=== PATIENT | female | born 1945 | race Caucasian/White ===

== ENCOUNTER 2024-03-27 07:51 | Inpatient (IN) ==
[2024-03-27 08:39] LABS: Basophils # (auto) 0.04 K/uL (0.00-0.20); Basophils % (auto) 0.4 %; Eosinophils # (auto) 0.13 K/uL (0.00-0.50); Eosinophils % (auto) 1.4 %; Hematocrit (blood only) 34.9 % (37.0-47.0); Hemoglobin 11.6 g/dl (12.0-16.0); Immature Granulocytes # (auto) 0.04 K/uL (0.01-0.20); Immature Granulocytes % (auto) 0.4 %; Lymphocytes # (auto) 2.04 K/uL (1.20-3.40); Lymphocytes % (auto) 22.2 %; Mean Corpuscular Hemoglobin 28.7 pg (25.0-34.0); Mean Corpuscular Hgb Conc 33.2 g/dL (32.0-36.0); Mean Corpuscular Volume 86.4 fL (80.0-100.0); Mean Platelet Volume 9.6 fL (9.4-12.4); Monocytes # (auto) 0.54 K/uL (0.11-0.59); Monocytes % (auto) 5.9 %; Neutrophils # (auto) 6.38 K/uL (1.40-6.50); Neutrophils % (auto) 69.7 %; Platelet Count 301 K/uL (130-400); RDW Coefficient of Variation 13.7 % (11.5-14.5); Red Blood Count 4.04 M/uL (4.20-5.40); White Blood Count 9.17 K/ul (4.8-10.8)
[2024-03-27 08:52] LABS: Albumin Globulin Ratio 1.3 (0.9-2); Albumin Level 4.2 gm/dl (3.4-5.0); BUN Creatinine Ratio 17.6 (10-20); Bilirubin,Total 0.5 mg/dl (0.2-1.0); Calcium 9.5 mg/dl (8.6-10.3); Creatinine Clr Calc Pharmacy 45.6 ml/min; Globulin 3.3 gm/dl (2.5-4.0); Potassium 3.9 mmol/L (3.5-5.1); Total Protein 7.5 gm/dl (6.0-8.3)
--- NOTE | 2024-03-27 08:53 | XRay Report ---
XR chest 1V portable CLINICAL HISTORY: Chest pain, nonspecific TECHNIQUE: Single frontal radiograph of the chest was obtained. Comparison: None available at the time of this dictation. FINDINGS: No lines and tubes are seen. Calcified aortic knob is seen. The lungs are clear. No evidence of pleur al effusion or pneumothorax. IMPRESSION: No acute chest disease. ACT 112: Negative or not required by law. Electronically signed by: Yovani Marvin M.D. 03/27/2024 8:51 AM
[2024-03-27] MEDS ORDERED: PANTOprazole 40 MG/10 ML SYR IV ONE (09:30)
[2024-03-27 09:34] LABS: Troponin I High Sensitivity 354.1 pg/ml (0-14)
[2024-03-27] MEDS: fentaNYL citrate PF 100 MCG/2 ML VIAL IV STA (09:39)
[2024-03-27] MEDS: ALUMINUM/MAGNESIUM SUSP 30 ML UDC PO STA (09:40)
[2024-03-27 09:41] LABS: D Dimer 2170 ug/L FEU (0-500)
[2024-03-27] MEDS: OPTIRAY 320 125ml IV ONE (09:57)
--- NOTE | 2024-03-27 10:06 | Emergency Department Note ---
Impression & Plan NSTEMI (non-ST elevated myocardial infarction), DM2 (diabetes mellitus, type 2) ED Provider Note NAME: NAKITA ROBIN AGE: 78 SEX: F : 1945 ARRIVES VIA: Walk-In INFORMANT: Patient, ED PROVIDER(S): John Kraus MD CHIEF COMPLAINT: Chest pain HPI: This 78-year-old female senting for chest pain. Patient notes that she had chest pain started yesterday. She had a routine cardiac catheterization prior to her symptoms starting on Tuesday, 4 days ago. This was reportedly negative at outside hospital. She then noted indigestion sensation to urgent care yesterday. She did an EKG which was reassuring and sent home. She comes back in for further chest pain, indigestion sensation. No actual nausea or vomiting. Pain is in her back and chest. No shortness of breath. ROS: See above HPI for pertinent positives & negatives. A total of 10 systems reviewed and were otherwise negative. PAST MEDICAL HISTORY: See Below PAST SURGICAL HISTORY: See Below FAMILY HISTORY: See Below SOCIAL HISTORY: See Below HOME MEDICATIONS: See Below ALLERGIES: See Below VITALS: See Below PHYSICAL EXAMINATION: General: resting comfortably in no acute distress Head: Normocephalic and atraumatic Eyes: Normal inspection, extraocular muscles intact Ear, nose, throat: Normal external exam Neck: Normal range of motion Respiratory: lungs clear to auscultation bilaterally Cardiovascular: Regular rate/rhythm, no murmur GI: soft, nontender, no guarding or rebound Extremities: nontender, moves all extremities Neuro: The patient awake and alert, appropriately conversive, no focal deficits, symmetric faces Skin: Warm, dry, and intact MEDICAL DECISION MAKING: This is an 78-year-old female presenting for chest pain. Patient had negative stress test on Tuesday. Consider ACS, PE, dissection. -ECG independently interpreted by me with normal sinus rhythm, rate of 60, normal axis, normal MA, normal QRS, normal QTc, no ST segment elevations consistent with STEMI criteria -2nd ECG independently interpreted by me with normal sinus rhythm, rate of 67, normal axis, normal MA, normal QRS, normal QTc, no ST segment elevations consistent with STEMI criteria -3rd ECG independently interpreted by me with normal sinus rhythm, rate of 61, normal axis, normal MA, normal QRS, normal QTc, no ST segment elevations consistent with STEMI criteria -EKG appears stable after numerous hours. She has continuing chest pain. Given GI cocktail, fentanyl -Chest Xray independently interpreted by me showing no pneumothorax, focal opacity, or pleural effusions. -Due to elevated D-dimer and troponin, will do CTA to rule out PE however low concern for this -No PE is noted at this time on CT imaging -Patient notes resolution of pain at this time -Patient troponin is elevated at over 354. Second is 479 -Patient on heparin bolus/drip for suspected NSTEMI -Patient required mission to Dr. Powell for NSTEMI Differential diagnosis: ACS, PE, dissection, pneumonia ER treatment provided: See below Independent History obtained from: Son, Diagnostics interpreted by me: ECG: See above Cardiac Monitoring: An order was placed for continuous cardiac monitoring. The monitor shows a rate of 74 with sinus rhythm. Laboratory studies: As stated above and show below. Imaging studies: See below. Critical Care Note: I have personally spent 45 minutes of critical care time in the direct management of this patient. This includes bedside care, interpretation of diagnostic studies, and testing, discussion with consultants, patient, and family members, and other required patient management activities. This 45 minutes is in excess of all separately billable procedures. Past Med/Surg History Problem List (Updated 03/27/24 @ 15:26 by John Kraus MD) Arrhythmia HLD (hyperlipidemia) DM2 (diabetes mellitus, type 2) (Acute) NSTEMI (non-ST elevated myocardial infarction) (Acute) Social History Smoking Status: Former smoker Hx Alcohol Use: Yes Alcohol type: wine Hx Substance Use: No Preferred Language: Guatemalan Communication Ability: Effective Ship Captain Required: No Beliefs That Will Affect Care: None Current Living Situation: Significant Other Other Information That Helps Us Care for You: No Feels Safe at Home: Yes Safety Concerns: Feels Safe At This Time Assistive Devices: Denture - Upper, Denture - Lower and Glasses Allergies Allergies Allergy/AdvReac Type Severity Reaction Status Date / Time thiopental [From Pentothal] Allergy Severe Verified 03/27/24 14:32 Home Meds Home Medications Medication Instructions Recorded Confirmed dulaglutide 0.75 mg/0.5 mL 0.75 mg subcut WK 03/27/24 [facility] estradiol 0.01% (0.1 mg/gram) 1 applic vaginal DIRECTED 03/27/24 vaginal cream glimepiride 1 mg tablet 1 mg PO BID 03/27/24 losartan 50 mg tablet 50 mg PO DAILY 03/27/24 metformin 850 mg tablet 850 mg PO BID 03/27/24 metoprolol succinate 50 mg 50 mg PO DAILY 03/27/24 tablet,extended release 24 hr pantoprazole 40 mg tablet,delayed 40 mg PO DAILY 03/27/24 release pioglitazone 15 mg tablet 15 mg PO DAILY 03/27/24 potassium chloride 20 mEq 20 meq PO DIRECTED 03/27/24 tablet,extended release(part/cryst) pravastatin 40 mg tablet 40 mg PO DAILY 03/27/24 sitagliptin phosphate 100 mg 100 mg PO DAILY 03/27/24 tablet (Januvia) Results & Data (ED) Vital Signs Vital Signs - 24 hr 03/27/24 07:56 03/27/24 08:10 03/27/24 08:10 Temperature 36.6 C Temperature Source Temporal Artery Scan Pulse Rate 62 Pulse Rate [Apical] 65 Pulse Rate from SpO2 Sensor Respiratory Rate 17 15 Respiratory Effort / Characteristics Non-Labored Spontaneous Respiratory Depth Normal Respiratory Pattern Regular Blood Pressure 195/77 H Blood Pressure [Right Arm] 164/76 H Blood Pressure Mean 116 Blood Pressure Mean [Right Arm] 105 Pulse Oximetry 100 96 99 Oxygen Delivery Method Room Air Room Air Room Air Oxygen Flow Rate 0 Sepsis Recent Fever Within 48 Hours No Sepsis New/Unexplained Change in Mental Status No Sepsis Action Taken by Nursing No Action Required 03/27/24 08:17 03/27/24 08:20 03/27/24 08:30 Temperature Temperature Source Pulse Rate 63 Pulse Rate [Apical] Pulse Rate from SpO2 Sensor Respiratory Rate 17 Respiratory Effort / Characteristics Respiratory Depth Respiratory Pattern Blood Pressure 164/76 H 163/81 H Blood Pressure [Right Arm] Blood Pressure Mean 124 120 Blood Pressure Mean [Right Arm] Pulse Oximetry 100 Oxygen Delivery Method Room Air Oxygen Flow Rate Sepsis Recent Fever Within 48 Hours Sepsis New/Unexplained Change in Mental Status Sepsis Action Taken by Nursing 03/27/24 08:30 03/27/24 08:30 03/27/24 08:30 Temperature Temperature Source Pulse Rate Pulse Rate [Apical] Pulse Rate from SpO2 Sensor Respiratory Rate Respiratory Effort / Characteristics Respiratory Depth Respiratory Pattern Blood Pressure 163/81 H 163/81 H 163/81 H Blood Pressure [Right Arm] Blood Pressure Mean 120 120 120 Blood Pressure Mean [Right Arm] Pulse Oximetry Oxygen Delivery Method Oxygen Flow Rate Sepsis Recent Fever Within 48 Hours Sepsis New/Unexplained Change in Mental Status Sepsis Action Taken by Nursing 03/27/24 08:33 03/27/24 08:42 03/27/24 08:51 Temperature Temperature Source Pulse Rate 64 61 63 Pulse Rate [Apical] Pulse Rate from SpO2 Sensor 65 63 Respiratory Rate 22 17 Respiratory Effort / Characteristics Respiratory Depth Respiratory Pattern Blood Pressure Blood Pressure [Right Arm] Blood Pressure Mean Blood Pressure Mean [Right Arm] Pulse Oximetry 100 100 Oxygen Delivery Method Oxygen Flow Rate Sepsis Recent Fever Within 48 Hours Sepsis New/Unexplained Change in Mental Status Sepsis Action Taken by Nursing 03/27/24 09:00 03/27/24 09:00 03/27/24 09:06 Temperature Temperature Source Pulse Rate 64 Pulse Rate [Apical] Pulse Rate from SpO2 Sensor 65 Respiratory Rate 15 Respiratory Effort / Characteristics Respiratory Depth Respiratory Pattern Blood Pressure 194/102 H 194/102 H Blood Pressure [Right Arm] Blood Pressure Mean 147 147 Blood Pressure Mean [Right Arm] Pulse Oximetry 96 Oxygen Delivery Method Oxygen Flow Rate Sepsis Recent Fever Within 48 Hours Sepsis New/Unexplained Change in Mental Status Sepsis Action Taken by Nursing 03/27/24 09:12 03/27/24 09:24 03/27/24 09:30 Temperature Temperature Source Pulse Rate 64 65 Pulse Rate [Apical] Pulse Rate from SpO2 Sensor 65 Respiratory Rate 29 H 17 Respiratory Effort / Characteristics Respiratory Depth Respiratory Pattern Blood Pressure 199/94 H Blood Pressure [Right Arm] Blood Pressure Mean 130 Blood Pressure Mean [Right Arm] Pulse Oximetry 100 Oxygen Delivery Method Oxygen Flow Rate Sepsis Recent Fever Within 48 Hours Sepsis New/Unexplained Change in Mental Status Sepsis Action Taken by Nursing 03/27/24 09:30 03/27/24 09:30 03/27/24 09:33 Temperature Temperature Source Pulse Rate 62 Pulse Rate [Apical] Pulse Rate from SpO2 Sensor Respiratory Rate 18 Respiratory Effort / Characteristics Respiratory Depth Respiratory Pattern Blood Pressure 199/94 H 199/94 H Blood Pressure [Right Arm] Blood Pressure Mean 130 130 Blood Pressure Mean [Right Arm] Pulse Oximetry Oxygen Delivery Method Oxygen Flow Rate Sepsis Recent Fever Within 48 Hours Sepsis New/Unexplained Change in Mental Status Sepsis Action Taken by Nursing 03/27/24 10:02 03/27/24 10:02 03/27/24 10:09 Temperature Temperature Source Pulse Rate 65 Pulse Rate [Apical] Pulse Rate from SpO2 Sensor Respiratory Rate 17 Respiratory Effort / Characteristics Respiratory Depth Respiratory Pattern Blood Pressure 188/87 H 188/87 H Blood Pressure [Right Arm] Blood Pressure Mean 131 131 Blood Pressure Mean [Right Arm] Pulse Oximetry Oxygen Delivery Method Oxygen Flow Rate Sepsis Recent Fever Within 48 Hours Sepsis New/Unexplained Change in Mental Status Sepsis Action Taken by Nursing 03/27/24 10:12 03/27/24 10:21 03/27/24 10:30 Temperature Temperature Source Pulse Rate 64 63 Pulse Rate [Apical] Pulse Rate from SpO2 Sensor 62 Respiratory Rate 25 H 18 Respiratory Effort / Characteristics Respiratory Depth Respiratory Pattern Blood Pressure 174/90 H Blood Pressure [Right Arm] Blood Pressure Mean 117 Blood Pressure Mean [Right Arm] Pulse Oximetry 99 Oxygen Delivery Method Oxygen Flow Rate Sepsis Recent Fever Within 48 Hours Sepsis New/Unexplained Change in Mental Status Sepsis Action Taken by Nursing 03/27/24 10:42 Temperature Temperature Source Pulse Rate 63 Pulse Rate [Apical] Pulse Rate from SpO2 Sensor 60 Respiratory Rate 19 Respiratory Effort / Characteristics Respiratory Depth Respiratory Pattern Blood Pressure Blood Pressure [Right Arm] Blood Pressure Mean Blood Pressure Mean [Right Arm] Pulse Oximetry 93 Oxygen Delivery Method Oxygen Flow Rate Sepsis Recent Fever Within 48 Hours Sepsis New/Unexplained Change in Mental Status Sepsis Action Taken by Nursing Laboratory Data 03/27/24 08:13 03/27/24 08:13 Lab Results 03/27/24 03/27/24 03/27/24 Range/Units 08:13 09:17 10:04 WBC 9.17 (4.8-10.8) K/ul RBC 4.04 L (4.20-5.40) M/uL Hgb 11.6 L (12.0-16.0) g/dl Hct 34.9 L (37.0-47.0) % MCV 86.4 (80.0-100.0) fL MCH 28.7 (25.0-34.0) pg MCHC 33.2 (32.0-36.0) g/dL RDW Std Deviation 43.0 (36.4-46.3) fL RDW Coeff of Mandie 13.7 (11.5-14.5) % Plt Count 301 (130-400) K/uL MPV 9.6 (9.4-12.4) fL Immature Gran % (Auto) 0.4 % Neut % (Auto) 69.7 % Lymph % (Auto) 22.2 % [place] % (Auto) 5.9 % Eos % (Auto) 1.4 % Baso % (Auto) 0.4 % Neut # (Auto) 6.38 (1.40-6.50) K/uL Lymph # (Auto) 2.04 (1.20-3.40) K/uL [place] # (Auto) 0.54 (0.11-0.59) K/uL Eos # (Auto) 0.13 (0.00-0.50) K/uL Baso # (Auto) 0.04 (0.00-0.20) K/uL Immature Gran # (Auto) 0.04 (0.01-0.20) K/uL PT 10.5 (9.0-12.0) Seconds INR 1.0 (0.9-1.1) APTT 25 (21-31) Seconds PTT Ratio 0.9 D-Dimer 2170 H* (0-500) ug/L FEU Heparin Anti-Xa, Unfract < 0.10 L (0.3-0.7) IU/ml Sodium 139 (136-145) mmol/L Potassium 3.9 (3.5-5.1) mmol/L Chloride 104 (98-107) mmol/L Carbon Dioxide 26 (21-32) mmol/L Anion Gap 9 (3-11) BUN 16 (6-23) mg/dl Creatinine 0.91 (0.6-1.2) mg/dl Est Cr Clr Drug Dosing 45.6 ml/min eGFR 63.78 BUN/Creatinine Ratio 17.6 (10-20) Glucose 233 H (70-99(Fasting)) mg/dl POC Glucose 256 H (70-99) mg/dl Estimat Average Glucose 177 mg/dl Hemoglobin A1c 7.8 H (4.5-5.6) % Calcium 9.5 (8.6-10.3) mg/dl Total Bilirubin 0.5 (0.2-1.0) mg/dl AST 17 (13-39) U/L ALT 19 (7-52) U/L Alkaline Phosphatase 70 (34-104) U/L Troponin I High Sens 354.1 H* 479.0 H* D (0-14) pg/ml Total Protein 7.5 (6.0-8.3) gm/dl Albumin 4.2 (3.4-5.0) gm/dl Globulin 3.3 (2.5-4.0) gm/dl Albumin/Globulin Ratio 1.3 (0.9-2) Lipase 16 (11-82) U/L Administered Medications Heparin Sodium/Dextrose (Heparin Sodium/Dextrose) 25,000 units in 500 mls @ 14 mls/hr IV .Q24H NICHELLE; Protocol Stop: 04/26/24 10:59 Last Titration: 03/27/24 14:16 Dose: 0 units/hr, 0 mls/hr Documented By: Co-signed By: ANDRÉS Admin: 03/27/24 11:15 Dose: 700 units/hr, 14 mls/hr Documented By: AZUL Co-signed By: HUDSON Discontinued Medications Al Hydrox/Mg Hydrox/Simethicone (Aluminum/Magnesium Susp 30 Ml Udc) 30 ml PO NOW STA Stop: 03/27/24 09:31 Last Admin: 03/27/24 09:40 Dose: 30 ml Documented By: AZUL Aspirin (Aspirin 81 Mg Chew) 324 mg PO NOW STA Stop: 03/27/24 11:39 Last Admin: 03/27/24 13:44 Dose: 324 mg Documented By: Fentanyl Citrate (Fentanyl Citrate Pf 100 Mcg/2 Ml Vial) 50 mcg IV NOW STA Stop: 03/27/24 09:31 Last Admin: 03/27/24 09:39 Dose: 50 mcg Documented By: AZUL Fentanyl Citrate (Fentanyl Citrate Pf 100 Mcg/2 Ml Vial) Confirm Administered Dose 100 mcg .ROUTE .STK-MED ONE Stop: 03/27/24 14:30 Last Increment: 03/27/24 15:03 Dose: 50 mcg Documented By: JAG Heparin Sodium (Porcine) (Heparin Sod (Porcine) 1000 Unit/Ml) 3,000 units IV NOW ONE Stop: 03/27/24 10:46 Last Admin: 03/27/24 11:14 Dose: 3,000 units Documented By: AZUL Co-signed By: HUDSON Heparin Sodium (Porcine) (Heparin (Porcine) 1000 Unit/Ml 10 Ml (Consumer Affairs Manager Use Only)) Confirm Administered Dose 10,000 units .ROUTE .STK-MED ONE Stop: 03/27/24 14:30 Last Admin: 03/27/24 15:00 Dose: 2,000 units Documented By: MANAV Heparin Sodium/Dextrose (Heparin Iv Adult Wt-Based Low-Dose W/ Initial Bolus Protocol) 1 each IV NOW STA; Protocol Stop: 03/27/24 10:37 Last Admin: 03/27/24 11:32 Dose: Not Given Documented By: AZUL Pantoprazole Sodium (Protonix) 40 mg in 10 mls @ 5 mls/min IV NOW ONE Stop: 03/27/24 11:46 Last Admin: 03/27/24 12:06 Dose: 5 mls/min Documented By: AZUL Ioversol (Optiray 320 125ml) 119 ml IV ONCE ONE Stop: 03/27/24 09:58 Last Admin: 03/27/24 09:57 Dose: 119 ml Documented By: ALFREDO Ioversol (Optiray 350) Confirm Administered Dose 1 ml .ROUTE .STK-MED ONE Stop: 03/27/24 14:31 Last Admin: 03/27/24 15:16 Dose: 30 ml Documented By: MANAV Midazolam HCl (Midazolam Hcl 1 Mg/Ml 2ml Vial) Confirm Administered Dose 2 mg .ROUTE .STK-MED ONE Stop: 03/27/24 14:30 Last Admin: 03/27/24 15:03 Dose: 2 mg Documented By: JAG Nitroglycerin/Dextrose (Nitroglycerin/D5w 100mcg/Ml 20ml Syr) Confirm Administered Dose 2,000 mcg .ROUTE .STK-MED ONE Stop: 03/27/24 14:31 Last Admin: 03/27/24 15:00 Dose: 2,000 mcg Documented By: MANAV Imaging Data Radiologist's Impression: Chest X-Ray 03/27/24 08:17 XR chest 1V portable CLINICAL HISTORY: Chest pain, nonspecific TECHNIQUE: Single frontal radiograph of the chest was obtained. Comparison: None available at the time of this dictation. FINDINGS: No lines and tubes are seen. Calcified aortic knob is seen. The lungs are clear. No evidence of pleural effusion or pneumothorax. IMPRESSION: No acute chest disease. ACT 112: Negative or not required by law. Electronically signed by: Yovani Marvin M.D. 03/27/2024 8:51 AM Chest CTA 03/27/24 09:30 CT ANGIOGRAPHY OF THE CHEST DISSECTION PROTOCOL CLINICAL HISTORY: Chest pain. Evaluate for aortic dissection. COMPARISON STUDY: Chest radiograph performed earlier today. TECHNIQUE: Before and following the IV administration of 119 mL of Optiray, helical axial images of the chest were obtained. Maximal intensity projections and sagittal and coronal reformats were viewed on an independent 3D workstation. IV contrast was administered without complication. Automated exposure control was utilized for the study. A dose lowering technique was utilized adhering to the principles of ALARA. CT DOSE: 619.11 mGy.cm FINDINGS: The caliber of the thoracic aorta is normal. There is no thoracic aortic dissection or intramural hematoma. Size of the heart is normal. There is no pericardial effusion. No enlarged axillary, mediastinal or hilar lymph nodes are present. There is moderate to extensive coronary artery calcification. The central airways are patent. No pneumothorax or pleural effusion. Mild subpleural airspace opacities within the right lower lobe are noted. There is mild associated interlobular septal thickening. A 8 mm perifissural nodule along the minor fissure on image 140 of 245 is likely benign. A few minimal subpleural ground glass opacities within the left lower lobe are present. There are no fractures within the bony thorax. Heterogeneous appearance of the thoracic spine is noted with numerous lucent foci, the largest of which is a 1 cm focus within the T6 vertebral body. There is a smaller lucent focus within the manubrium. IMPRESSION: 1. No thoracic aortic dissection. 2. Mild subpleural airspace opacities within the lower lobes, greater on the right. This may reflect a mild infectious process. A follow-up chest CT in 3 months to ensure resolution is recommended. 3. Subtle interlobular septal thickening. This may reflect developing interstitial pulmonary edema. 4. Heterogeneous appearance of the spine with numerous lucent foci, as described above. This could be related to osteopenia. However, other etiologies such as multiple myeloma or less likely metastatic disease cannot be excluded. ACT 112: Positive. There are findings on this exam that require communication between the performing entity and the patient following Patient Test Result Information Act ([place] Act 112) guidelines. Electronically signed by: Davy Chavira M.D. 03/27/2024 10:33 AM Discharge Plan Visit Data Chief Complaint: Chest Pain Stated Complaint: HEART BURN/CHEST PAIN, SOME TACHYCARDIA LAST NIGHT ED Provider: John Kraus Discharge Problem: NSTEMI (non-ST elevated myocardial infarction), DM2 (diabetes mellitus, type 2) Patient Disposition: Admitted As Inpatient Discharge Instructions Interventions: ED Discharge Assessment Last Done: 03/27/24 12:31
--- NOTE | 2024-03-27 10:35 | CT Scan Report ---
CT ANGIOGRAPHY OF THE CHEST DISSECTION PROTOCOL CLINICAL HISTORY: Chest pain. Evaluate for aortic dissection. COMPARISON STUDY: Chest radiograph performed earlier today. TECHNIQUE: Before and following the IV administration of 119 mL of Optiray, helical axial images of t he chest were obtained. Maximal intensity projections and sagittal and coronal reformats were viewed on an independent 3D workstation. IV contrast was administered without complication. Automated exp osure control was utilized for the study. A dose lowering technique was utilized adhering to the yo [place]. CT DOSE: 619.11 mGy.cm FINDINGS: The caliber of the thoracic aorta is normal. There is no thoracic aortic dissection or int ramural hematoma. Size of the heart is normal. There is no pericardial effusion. No enlarged axillary , mediastinal or hilar lymph nodes are present. There is moderate to extensive coronary artery calcif ication. The central airways are patent. No pneumothorax or pleural effusion. Mild subpleural airspac e opacities within the right lower lobe are noted. There is mild associated interlobular septal thick ening. A 8 mm perifissural nodule along the minor fissure on image 140 of 245 is likely benign. A few minimal subpleural ground glass opacities within the left lower lobe are present. There are no fract ures within the bony thorax. Heterogeneous appearance of the thoracic spine is noted with numerous yue cent foci, the largest of which is a 1 cm focus within the T6 vertebral body. There is a smaller luce nt focus within the manubrium. IMPRESSION: 1. No thoracic aortic dissection. 2. Mild subpleural airspace opacities within the lower lobes, greater on the right. This may reflect a mild infectious process. A follow-up chest CT in 3 months to ensure resolution is recommended. 3. Subtle interlobular septal thickening. This may reflect developing interstitial pulmonary edema. 4. Heterogeneous appearance of the spine with numerous lucent foci, as described above. This could be related to osteopenia. However, other etiologies such as multiple myeloma or less likely metastatic disease cannot be excluded. ACT 112: Positive. There are findings on this exam that require communication between the performing entity and the patient following Patient Test Result Information Act ([place] Act 112) guidelines. Electronically signed by: Davy Chavira M.D. 03/27/2024 10:33 AM
[2024-03-27] MEDS ORDERED: HEPARIN SOD (PORCINE) 1000 UNIT/ML IV ONE (10:51)
[2024-03-27 11:02] LABS: ANTI-Xa, UFH(UnfractionatedHep < 0.10 IU/ml (0.3-0.7)
--- NOTE | 2024-03-27 11:11 | History & Physical Report ---
Date of Service March 27, 2024 Assessment & Plan (1) NSTEMI (non-ST elevated myocardial infarction): Plan: Intermittent chest pain with exertion for many weeks, possibly slightly worse in the last few weeks with now 3 episodes of chest pain at rest in the last 2 d ays Troponin elevated 354, uptrending onto a repeat at 479 Echo pending, troponin trended every 6 hours Suspicious story for crescendo angina now with unstable angina with 3 episodes occurring at rest and elevated troponin EKG without acute ischemic changes Patient did have a normal stress test on 03/23/2024 at [facility]. Records are pending Heparinized, full dose aspirin ordered. Patient did not take any medicines except for metoprolol this morning Cardiology consulted Chest pain-free at bedside assessment BP 170s. If recurrent chest pain or SBP greater than 180s can trial nitro 0.5 inch paste on chest for both. If persistent recurrent chest pain that does not resolve with topical/sublingual nitro we will follow-up for emergent cath. Clinically stable and chest pain-free at time of bedside assessment Patient does report a past history of a heart attack but notes that this was related to a medicine over 20 years ago when she did not have any ischemic disease noted on catheterization and has no stents or history of bypass. Denies history of heart failure. No history of orthopnea/leg swelling (2) DM2 (diabetes mellitus, type 2): Plan: Home antiglycemic's held while n.p.o. Converted to basal bolus insulin while inpatient Goal BSG [id number] BSG 233 on admission, sliding scale ordered. Lantus dose reduced while n.p.o. (3) HLD (hyperlipidemia): Plan: Fasting lipid panel ordered, patient is on pravastatin 40 mg daily. This will be converted to atorvastatin 40 mg. Patient does have some muscle aches, if she is intolerant of the atorvastatin then can consider rosuvastatin as an alternative (4) Arrhythmia: Plan: Patient does not know what arrhythmia she had but notes that she is not on any blood thinners and never has been other than aspirin. Does not think she has had A-fib or a flutter. She reports she was put on metoprolol a very long time ago and does not recall further details. Records pending. Sinus rhythm on admission Plan DVT prophylaxis: Heparinized Disposition: PCU Diet: N.p.o. pending cath evaluation, may advance to DM2/heart healthy post cath, or if no cath is going to be pursued on consultation CODE STATUS: Full code History of Present Illness Primary Care Provider: NO PCP Yadira is an 78-year-old female who presented to the ER with chest pain across her bilateral upper chest with radiation nation into both arms and the mid jaw which was intermittent, but recurred last night after dinner. Patient had a stress test at [facility] which was normal 4 days ago. Per Chart Review: CTAchest is with no evidence of thoracic aortic dissection. No PE is noted. Mild subpleural airspace opacities of the right lower lower lobe greater than the left are seen which may reflect mild infectious process. Subtle interlobar thickening? Developing interstitial edema. Heterogenous appearance of the spine with lucent foci which could represent osteopenia but from which multiple myeloma/metastatic disease is not excluded. There is no leukocytosis. D-dimer is elevated at 2170, no PE seen on CTA as noted Troponin is elevated at 354, and uptrending at 479. Trended every 6 hours x 3 and echo ordered Serial EKGs: 8:08 AM: Normal sinus rhythm without territorial ST/T wave changes Dual EKG similar without acute ST segment changes or acute territorial T wave inversions. Total protein is not elevated. Medications include glimepiride, Januvia, losartan, metformin, Protonix, pioglitazone, pravastatin, Trulicity. Follows with Martine Robbins PA-C at [facility]. Records requested. Per patient: Yadira is seen at the bedside. She reports that she has a history of hypertension, reasonably controlled diabetes, past heart attack in 2019 but was thought to be due to a medication rather than ischemic disease and she has no stents or history of bypass and with no history of heart failure who was in town visiting her 's brother when she has had recurrent episodes of chest pain. She reports for a very long time she has had exertional chest pressure when walking up a ramp but this was brief and seem to improve with rest. She does endorse that maybe this is a little bit worse more recently but notes it has been there for a while She reports that Tuesday she had a routine stress test which was actually normal. This was not performed for any symptoms, was told she should have 1 around every 4 years due to her history. Records from [facility] are pending for this. She reports on Tuesday she was in the car when she had a sudden chest pressure and discomfort with a bandlike quality in which radiated into her jaw bilaterally. This lasted around 20 minutes and then resolved. She did see [facility] urgent care for this did not have EKG changes at that time and was felt to be stable for outpatient follow-up. She had a recurrent episode last night which seemed to wax and wane overnight lasting no longer than 20 minutes with each wave of discomfort and which was not associated with dyspnea or sweating. This was the same pain she experienced while in the car. Had recurrent pain this morning and she presented to the ER for evaluation and was found to have an elevated troponin. She did not take any medications this morning except her metoprolol. She reports she takes this for blood pressure. She did not take any aspirin, reports she did not receive any aspirin prehospital, 4 in the ER. Full dose aspirin ordered Records requested from her PCP including last family practice note, cardiology note, and cath record if available She does not Dors history of diabetes, hypertension. She denies history of tobacco abuse, rare social alcohol abuse. Full code She had a mucosal rash to sodium pentathol many years ago, denies other medication allergies Allergies Allergy/AdvReac Type Severity Reaction Status Date / Time thiopental [From Pentothal] Allergy Severe Verified 03/27/24 11:41 Home Medications Medication Instructions Recorded Confirmed Type dulaglutide 0.75 mg/0.5 mL 0.75 mg subcut WK 03/27/24 History subcutaneous pen injector (Trulicity) estradiol 0.01% (0.1 mg/gram) 1 applic vaginal DIRECTED 03/27/24 History vaginal cream glimepiride 1 mg tablet 1 mg PO BID 03/27/24 History losartan 50 mg tablet 50 mg PO DAILY 03/27/24 History metformin 850 mg tablet 850 mg PO BID 03/27/24 History metoprolol succinate 50 mg 50 mg PO DAILY 03/27/24 History tablet,extended release 24 hr pantoprazole 40 mg tablet,delayed 40 mg PO DAILY 03/27/24 History release pioglitazone 15 mg tablet 15 mg PO DAILY 03/27/24 History potassium chloride 20 mEq 20 meq PO DIRECTED 03/27/24 History tablet,extended release(part/cryst) pravastatin 40 mg tablet 40 mg PO DAILY 03/27/24 History sitagliptin phosphate 100 mg 100 mg PO DAILY 03/27/24 History tablet (Januvia) Past Med/Surg History Problem List (Updated 03/27/24 @ 11:46 by Rubio Powell MD) Arrhythmia HLD (hyperlipidemia) DM2 (diabetes mellitus, type 2) NSTEMI (non-ST elevated myocardial infarction) Social History Smoking Status: Former smoker Hx Alcohol Use: Yes Alcohol type: wine Hx Substance Use: No Preferred Language: Irish Communication Ability: Effective Clinical Services Consultant Required: No Beliefs That Will Affect Care: None Current Living Situation: Significant Other Feels Safe at Home: Yes Assistive Devices: Denture - Upper, Denture - Lower and Glasses Physical Exam Physical Exam: General: A&Ox3. NAD. Cooperative. HEENT: Atraumatic, normocephalic. Pulm: CTAB A&P. -wheezes, -rales, -rhonchi. Symmetrical chest rise. No increased work of breathing. No respiratory distress. Cardiac: RRR, +sm. Radial pulses intact and symmetrical. No JVD. No lower extremity pitting edema. No chest wall tenderness Abdominal: Nontender, nondistended, soft. BS present. Results & Data Results & Data Vital Signs (Past 12 Hours) Vital Signs Temp Pulse Pulse Resp BP BP Pulse Ox 03/27/24 10:42 63 19 93 03/27/24 10:30 174/90 H 03/27/24 10:21 63 18 99 03/27/24 10:12 64 25 H 03/27/24 10:09 65 17 03/27/24 10:02 188/87 H 03/27/24 10:02 188/87 H 03/27/24 09:33 62 18 03/27/24 09:30 199/94 H 03/27/24 09:30 199/94 H 03/27/24 09:30 199/94 H 03/27/24 09:24 65 17 03/27/24 09:12 64 29 H 100 03/27/24 09:06 64 15 96 03/27/24 09:00 194/102 H 03/27/24 09:00 194/102 H 03/27/24 08:51 63 17 100 03/27/24 08:42 61 03/27/24 08:33 64 22 100 03/27/24 08:30 163/81 H 03/27/24 08:30 163/81 H 03/27/24 08:30 163/81 H 03/27/24 08:30 163/81 H 03/27/24 08:20 63 17 100 03/27/24 08:17 164/76 H 03/27/24 08:10 65 15 164/76 H 99 03/27/24 08:10 96 03/27/24 07:56 36.6 C 62 17 195/77 H 100 O2 Del Method O2 Flow Rate 03/27/24 10:42 03/27/24 10:30 03/27/24 10:21 03/27/24 10:12 03/27/24 10:09 03/27/24 10:02 03/27/24 10:02 03/27/24 09:33 03/27/24 09:30 03/27/24 09:30 03/27/24 09:30 03/27/24 09:24 03/27/24 09:12 03/27/24 09:06 03/27/24 09:00 03/27/24 09:00 03/27/24 08:51 03/27/24 08:42 03/27/24 08:33 03/27/24 08:30 03/27/24 08:30 03/27/24 08:30 03/27/24 08:30 03/27/24 08:20 Room Air 03/27/24 08:17 03/27/24 08:10 Room Air 03/27/24 08:10 Room Air 0 03/27/24 07:56 Room Air PG Care Time/CCT Total # of Minutes Spent Total Time Spent with Patient: Total time spent is greater than 50% in coordination of care (as documented) at patient's floor/unit and/or counseling patient: Coding Level of Care Code 82831 INT INP/OBS CARE 3/75MIN Diagnoses NSTEMI (non-ST elevated myocardial infarction) I21.4 DM2 (diabetes mellitus, type 2) E11.9 HLD (hyperlipidemia) E78.5 Arrhythmia I49.9
[2024-03-27] MEDS: HEPARIN SOD (PORCINE) 1000 UNIT/ML IV ONE (11:14)
[2024-03-27] MEDS: HEPARIN SODIUM/DEXTROSE 25,000 UNITS/500 ML BAG IV SCH (11:15)
[2024-03-27] MEDS ORDERED: Nursing to Pharmacy Communication SCH ×2 (11:30→13:45)
--- NOTE | 2024-03-27 11:30 | Electrocardiogram Report ---
Test Reason : Blood Pressure : */* mmHG Vent. Rate : 67 BPM Atrial Rate : 67 BPM P-R Int : 200 ms QRS Dur : 90 ms QT Int : 426 ms P-R-T Axes : 64 41 66 degrees QTcB Int : 450 ms Normal sinus rhythm When compared with ECG of 27-Mar-2024 09:00, (unconfirmed) Nonspecific T wave abnormality now evident in Lateral leads Confirmed by Saúl Lowery ([id number]) on 03/27/2024 11:30:23 AM Referred By: REFERRED SELF Confirmed By: Saúl Lowery
--- NOTE | 2024-03-27 11:30 | Electrocardiogram Report ---
Test Reason : Blood Pressure : */* mmHG Vent. Rate : 60 BPM Atrial Rate : 60 BPM P-R Int : 194 ms QRS Dur : 76 ms QT Int : 418 ms P-R-T Axes : 42 8 35 degrees QTcB Int : 418 ms Normal sinus rhythm No previous ECGs available Confirmed by Saúl Lowery ([id number]) on 03/27/2024 11:30:15 AM Referred By: Confirmed By: Saúl Lowery
--- NOTE | 2024-03-27 11:31 | Electrocardiogram Report ---
Test Reason : Blood Pressure : */* mmHG Vent. Rate : 61 BPM Atrial Rate : 61 BPM P-R Int : 198 ms QRS Dur : 80 ms QT Int : 428 ms P-R-T Axes : 65 23 43 degrees QTcB Int : 430 ms Normal sinus rhythm When compared with ECG of 27-Mar-2024 08:08, (unconfirmed) No significant change was found Confirmed by Saúl Lowery ([id number]) on 03/27/2024 11:31:09 AM Referred By: REFERRED SELF Confirmed By: Saúl Lowery
[2024-03-27] MEDS: Heparin IV Adult Wt-Based Low-Dose w/ INITIAL Bolus Protocol IV STA (11:32)
[2024-03-27 11:37] LABS: Partial Thromboplastin Ratio 0.9; Partial Thromboplastin Time 25 Seconds (21-31); Prothrombin Time 10.5 Seconds (9.0-12.0)
[2024-03-27] MEDS ORDERED: GLUCOSE 10 TAB/TUBE PO PRN (11:44)
[2024-03-27] MEDS ORDERED: GLUCOSE 40% GEL 15 GM TUBE PO PRN (11:44)
[2024-03-27] MEDS ORDERED: GLUCAGON FOR INJ 1 MG VIAL SQ PRN (11:44)
[2024-03-27] MEDS ORDERED: DEXTROSE 50% 50 ML SYRINGE IV PRN (11:44)
[2024-03-27] MEDS ORDERED: CARBOHYDRATES FOR HYPOGLYCEMIA PO PRN (11:44)
[2024-03-27] MEDS: PANTOprazole 40 MG/10 ML SYR IV ONE (12:06)
[2024-03-27 12:50] LABS: Estimated Average Glucose 177 mg/dl; Hemoglobin A1C 7.8 % (4.5-5.6)
--- NOTE | 2024-03-27 13:01 | XCELERA ---
[id number]
[2024-03-27] MEDS: ASPIRIN 81 MG CHEW PO STA (13:44)
--- NOTE | 2024-03-27 13:51 | Pre Anesthesia Assessment ---
Date of Service March 27, 2024 Pre Sedation Assessment Vital Signs Temp Pulse Pulse Resp BP BP Pulse Ox 03/27/24 12:45 36.6 C 76 169/71 H 94 03/27/24 12:05 58 L 16 160/49 H 99 03/27/24 10:42 63 19 93 03/27/24 10:30 174/90 H 03/27/24 10:21 63 18 99 03/27/24 10:12 64 25 H 03/27/24 10:09 65 17 03/27/24 10:02 188/87 H 03/27/24 10:02 188/87 H 03/27/24 09:33 62 18 03/27/24 09:30 199/94 H 03/27/24 09:30 199/94 H 03/27/24 09:30 199/94 H 03/27/24 09:24 65 17 03/27/24 09:12 64 29 H 100 03/27/24 09:06 64 15 96 03/27/24 09:00 194/102 H 03/27/24 09:00 194/102 H 03/27/24 08:51 63 17 100 03/27/24 08:42 61 03/27/24 08:33 64 22 100 03/27/24 08:30 163/81 H 03/27/24 08:30 163/81 H 03/27/24 08:30 163/81 H 03/27/24 08:30 163/81 H 03/27/24 08:20 63 17 100 03/27/24 08:17 164/76 H 03/27/24 08:10 65 15 164/76 H 99 03/27/24 08:10 96 03/27/24 07:56 36.6 C 62 17 195/77 H 100 O2 Del Method O2 Flow Rate 03/27/24 12:45 Room Air 03/27/24 12:05 Room Air 03/27/24 10:42 03/27/24 10:30 03/27/24 10:21 03/27/24 10:12 03/27/24 10:09 03/27/24 10:02 03/27/24 10:02 03/27/24 09:33 03/27/24 09:30 03/27/24 09:30 03/27/24 09:30 03/27/24 09:24 03/27/24 09:12 03/27/24 09:06 03/27/24 09:00 03/27/24 09:00 03/27/24 08:51 03/27/24 08:42 03/27/24 08:33 03/27/24 08:30 03/27/24 08:30 03/27/24 08:30 03/27/24 08:30 03/27/24 08:20 Room Air 03/27/24 08:17 03/27/24 08:10 Room Air 03/27/24 08:10 Room Air 0 03/27/24 07:56 Room Air Cardiovascular + regular rate and + regular rhythm Respiratory + respiratory effort normal Pre-Sedation Airway Assessment Smoking Status: Former smoker Hx Sleep Apnea: No Hx Difficult Intubation: No Short, Thick Neck: No Thyromental Distance: > or= 3.5 Finger Breadths Oral Cavity: + WNL Mallampati Class: III ASA: ASA3 Procedure Planning Contraindications for Sedation: none Current Medications Reviewed: Yes Notes The planned sedation has been discussed with the patient. Informed Consent was obtained. I have identified the patient, determined the appropriateness of sedation and have assessed the patient immediately prior to the procedure. All medicine(s) and interventions are by my order.
--- NOTE | 2024-03-27 14:07 | Cardiology Consultation ---
Date of Consultation March 27, 2024 Assessment & Plan (1) NSTEMI (non-ST elevated myocardial infarction): Plan 1. NSTEMI: She does have elevation in cardiac biomarkers. Overall elevation is quite small relative to her symptoms. There are some atypical features such as improvement with activity and the medications provided in the emergency room. However, she is also in a demographic where coronary disease is common. She does not have any aortopathy or evidence of aortic dissection. Pulmonary embolus has been excluded. I think it is reasonable to perform coronary angiography in order to exclude an acute coronary syndrome. In the absence of significant coronary disease attention should be directed at a gastrointestinal source. I did discuss the risks and benefits of repeat coronary angiography with the patient today. I also discussed the alternatives. Will plan on proceeding when the lab is available. Patient did receive aspirin. Will continue heparin infusion until angiography is completed. Already on beta-blockade. History of Present Illness Reason for Consultation: Chest pain, elevated troponin Requesting Physician: Sherry Attending Physician: Rubio Powell MD History of Present Illness The patient is an 78-year-old woman with a remote history of myocardial infarction reportedly due to Vioxx. She states that this episode happened approximately 20 years ago. She did undergo coronary angiography and was not felt to have obstructive coronary disease at that time. Periodically she has a cardiac evaluation and last week she under went perfusion imaging. This study was reportedly normal. The patient states that 2 days ago she began to have symptoms of upper precordial discomfort and jaw discomfort. This occurred without provocation. She did seek medical attention at an urgent care center close to home. She states that an EKG was done. She was provided reassurance and discharge. She then traveled to the [facility] to visit a friend. Last evening she went out to dinner and after dinner she began to have similar symptoms. These waxed and waned in severity over the course of the night. She states that in any 1 time the symptoms may have lasted between 10 and 20 minutes. Certain motions and activity seem to improve the symptoms. She was awoken several times during the course of the evening with symptoms. Based on the nature and recurrent episode she presented to the emergency room today for an evaluation. In our emergency room she was administered a GI cocktail as well as some pantoprazole. Her symptoms seem to improved. Currently feeling well. He states that normally she is an active individual. She does not have symptoms of chest pain at rest. However, she does endorse symptoms of exertional chest pain when ascending hills for several years. She generally rests or slows down and the symptoms improved. She did report some dizziness and lightheadedness over the past 2 days, but generally this is not a concerning symptom. She states that she had 1 episode of presyncope when she started Trulicity in the past. She has a long history of palpitations for which she takes metoprolol. She occasionally will notice some palpitations but no extended episodes of tachy cardia recently. Allergies Allergy/AdvReac Type Severity Reaction Status Date / Time thiopental [From Pentothal] Allergy Severe Verified 03/27/24 11:41 Home Medications Medication Instructions Recorded Confirmed Type dulaglutide 0.75 mg/0.5 mL 0.75 mg subcut WK 03/27/24 History subcutaneous pen injector (Trulicity) estradiol 0.01% (0.1 mg/gram) 1 applic vaginal DIRECTED 03/27/24 History vaginal cream glimepiride 1 mg tablet 1 mg PO BID 03/27/24 History losartan 50 mg tablet 50 mg PO DAILY 03/27/24 History metformin 850 mg tablet 850 mg PO BID 03/27/24 History metoprolol succinate 50 mg 50 mg PO DAILY 03/27/24 History tablet,extended release 24 hr pantoprazole 40 mg tablet,delayed 40 mg PO DAILY 03/27/24 History release pioglitazone 15 mg tablet 15 mg PO DAILY 03/27/24 History potassium chloride 20 mEq 20 meq PO DIRECTED 03/27/24 History tablet,extended release(part/cryst) pravastatin 40 mg tablet 40 mg PO DAILY 03/27/24 History sitagliptin phosphate 100 mg 100 mg PO DAILY 03/27/24 History tablet (Januvia) Patient History Social History Smoking Status: Former smoker Hx Alcohol Use: Yes Alcohol type: wine Hx Substance Use: No Preferred Language: Japanese Communication Ability: Effective 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 Mood affect appear normal. She answered all questions appropriately. HEENT: Sclerae are anicteric. Pupils are equal and reactive to light and accommodation. Extraocular movements were intact. Neuro: Cranial nerves intact Lungs: Lungs are clear to auscultation bilaterally. There are no rales wheezes or rhonchi. She has normal respiratory effort without use of accessory muscles. There is normal pulmonary excursion. Cardiac: The rhythm was regular. S1 and S2 were normal. There are no murmurs on examination. The PMI was not markedly displaced on palpation. Abdomen: The abdomen was soft and nontender. Extremities: Patient has bilateral radial pulses that are equal in intensity. There is no evidence cyanosis or clubbing. There was no evidence of significant peripheral edema bilaterally. Skin: There are no rashes noted on examination today. Results & Data Vital Signs (Past 12 Hours) Vital Signs Temp Pulse Pulse Resp BP BP Pulse Ox 03/27/24 12:45 36.6 C 76 169/71 H 94 03/27/24 12:05 58 L 16 160/49 H 99 03/27/24 10:42 63 19 93 03/27/24 10:30 174/90 H 03/27/24 10:21 63 18 99 03/27/24 10:12 64 25 H 03/27/24 10:09 65 17 03/27/24 10:02 188/87 H 03/27/24 10:02 188/87 H 03/27/24 09:33 62 18 03/27/24 09:30 199/94 H 03/27/24 09:30 199/94 H 03/27/24 09:30 199/94 H 03/27/24 09:24 65 17 03/27/24 09:12 64 29 H 100 03/27/24 09:06 64 15 96 03/27/24 09:00 194/102 H 03/27/24 09:00 194/102 H 03/27/24 08:51 63 17 100 03/27/24 08:42 61 03/27/24 08:33 64 22 100 03/27/24 08:30 163/81 H 03/27/24 08:30 163/81 H 03/27/24 08:30 163/81 H 03/27/24 08:30 163/81 H 03/27/24 08:20 63 17 100 03/27/24 08:17 164/76 H 03/27/24 08:10 65 15 164/76 H 99 03/27/24 08:10 96 03/27/24 07:56 36.6 C 62 17 195/77 H 100 O2 Del Method O2 Flow Rate 03/27/24 12:45 Room Air 03/27/24 12:05 Room Air 03/27/24 10:42 03/27/24 10:30 03/27/24 10:21 03/27/24 10:12 03/27/24 10:09 03/27/24 10:02 03/27/24 10:02 03/27/24 09:33 03/27/24 09:30 03/27/24 09:30 03/27/24 09:30 03/27/24 09:24 03/27/24 09:12 03/27/24 09:06 03/27/24 09:00 03/27/24 09:00 03/27/24 08:51 03/27/24 08:42 03/27/24 08:33 03/27/24 08:30 03/27/24 08:30 03/27/24 08:30 03/27/24 08:30 03/27/24 08:20 Room Air 03/27/24 08:17 03/27/24 08:10 Room Air 03/27/24 08:10 Room Air 0 03/27/24 07:56 Room Air Laboratory Results Abnormal Lab Results 03/27/24 03/27/24 03/27/24 08:13 09:17 10:04 WBC 9.17 RBC 4.04 L Hgb 11.6 L Hct 34.9 L MCV 86.4 MCH 28.7 MCHC 33.2 RDW Std Deviation 43.0 RDW Coeff of Mandie 13.7 Plt Count 301 MPV 9.6 Immature Gran % (Auto) 0.4 Neut % (Auto) 69.7 Lymph % (Auto) 22.2 [place] % (Auto) 5.9 Eos % (Auto) 1.4 Baso % (Auto) 0.4 Neut # (Auto) 6.38 Lymph # (Auto) 2.04 [place] # (Auto) 0.54 Eos # (Auto) 0.13 Baso # (Auto) 0.04 Immature Gran # (Auto) 0.04 PT 10.5 INR 1.0 APTT 25 PTT Ratio 0.9 D-Dimer 2170 H* Heparin Anti-Xa, Unfract < 0.10 L Sodium 139 Potassium 3.9 Chloride 104 Carbon Dioxide 26 Anion Gap 9 BUN 16 Creatinine 0.91 Est Cr Clr Drug Dosing 45.6 eGFR 63.78 BUN/Creatinine Ratio 17.6 Glucose 233 H POC Glucose 256 H Estimat Average Glucose 177 Hemoglobin A1c 7.8 H Calcium 9.5 Total Bilirubin 0.5 AST 17 ALT 19 Alkaline Phosphatase 70 Troponin I High Sens 354.1 H* 479.0 H* D Total Protein 7.5 Albumin 4.2 Globulin 3.3 Albumin/Globulin Ratio 1.3 Lipase 16 03/27/24 13:44 WBC RBC Hgb Hct MCV MCH MCHC RDW Std Deviation RDW Coeff of Mandie Plt Count MPV Immature Gran % (Auto) Neut % (Auto) Lymph % (Auto) [place] % (Auto) Eos % (Auto) Baso % (Auto) Neut # (Auto) Lymph # (Auto) [place] # (Auto) Eos # (Auto) Baso # (Auto) Immature Gran # (Auto) PT INR APTT PTT Ratio D-Dimer Heparin Anti-Xa, Unfract Sodium Potassium Chloride Carbon Dioxide Anion Gap BUN Creatinine Est Cr Clr Drug Dosing eGFR BUN/Creatinine Ratio Glucose POC Glucose 217 H Estimat Average Glucose Hemoglobin A1c Calcium Total Bilirubin AST ALT Alkaline Phosphatase Troponin I High Sens Total Protein Albumin Globulin Albumin/Globulin Ratio Lipase Diagnostic Findings Chest CTA did not demonstrate any evidence of pulmonary embolus Echocardiogram demonstrated preserved LV systolic function with possible regional wall motion abnormality involving the basal inferior wall. No significant valvular heart disease. Mild LVH. ECG Additional Comments: Serial EKGs were obtained. All demonstrated normal sinus rhythm without significant ST or T wave abnormalities. PG Care Time/CCT Total # of Minutes Spent Total Time Spent with Patient: Total time spent is greater than 50% in coordination of care (as documented) at patient's floor/unit and/or counseling patient: Coding Level of Care Code 74871 INT INP/OBS CARE 3/75MIN Diagnoses NSTEMI (non-ST elevated myocardial infarction) I21.4
[2024-03-27] MEDS: HEPARIN (PORCINE) 1000 UNIT/ML 10 ML (CATH LAB USE ONLY) ONE (15:00)
[2024-03-27] MEDS: NITROGLYCERIN/D5W 100MCG/ML 20ML SYR ONE (15:00)
[2024-03-27] MEDS: MIDAZOLAM HCL 1 MG/ML 2ML VIAL ONE (15:03)
[2024-03-27] MEDS: fentaNYL citrate PF 100 MCG/2 ML VIAL ONE (15:03)
--- NOTE | 2024-03-27 15:09 | Post Anesthesia Assessment ---
Date of Service March 27, 2024 Post Sedation Assessment Vital Signs Temp Pulse Pulse Resp BP BP Pulse Ox 03/27/24 14:28 36.7 C 73 18 163/77 H 98 03/27/24 14:15 62 03/27/24 12:45 36.6 C 76 169/71 H 94 03/27/24 12:05 58 L 16 160/49 H 99 03/27/24 10:42 63 19 93 03/27/24 10:30 174/90 H 03/27/24 10:21 63 18 99 03/27/24 10:12 64 25 H 03/27/24 10:09 65 17 03/27/24 10:02 188/87 H 03/27/24 10:02 188/87 H 03/27/24 09:33 62 18 03/27/24 09:30 199/94 H 03/27/24 09:30 199/94 H 03/27/24 09:30 199/94 H 03/27/24 09:24 65 17 03/27/24 09:12 64 29 H 100 03/27/24 09:06 64 15 96 03/27/24 09:00 194/102 H 03/27/24 09:00 194/102 H 03/27/24 08:51 63 17 100 03/27/24 08:42 61 03/27/24 08:33 64 22 100 03/27/24 08:30 163/81 H 03/27/24 08:30 163/81 H 03/27/24 08:30 163/81 H 03/27/24 08:30 163/81 H 03/27/24 08:20 63 17 100 03/27/24 08:17 164/76 H 03/27/24 08:10 65 15 164/76 H 99 03/27/24 08:10 96 03/27/24 07:56 36.6 C 62 17 195/77 H 100 O2 Del Method O2 Flow Rate 03/27/24 14:28 Room Air 03/27/24 14:15 03/27/24 12:45 Room Air 03/27/24 12:05 Room Air 03/27/24 10:42 03/27/24 10:30 03/27/24 10:21 03/27/24 10:12 03/27/24 10:09 03/27/24 10:02 03/27/24 10:02 03/27/24 09:33 03/27/24 09:30 03/27/24 09:30 03/27/24 09:30 03/27/24 09:24 03/27/24 09:12 03/27/24 09:06 03/27/24 09:00 03/27/24 09:00 03/27/24 08:51 03/27/24 08:42 03/27/24 08:33 03/27/24 08:30 03/27/24 08:30 03/27/24 08:30 03/27/24 08:30 03/27/24 08:20 Room Air 03/27/24 08:17 03/27/24 08:10 Room Air 03/27/24 08:10 Room Air 0 03/27/24 07:56 Room Air Recovery Score Activity: Moves 4 extremities Respiration: Deep Breath/Cough Circulation: +/-20% PreAnes Value Consciousness: Fully Awake Oxygen Saturation: > 92% On Room Air Discharge Sedation Level of Care: Fast Track Phase II Post Sedation Plan On clinical assessment, the patient appears to have tolerated the sedation without complications. Patient is recovering as anticipated. Patient will continue to be monitored by nursing and may be discharged when sedation discharge criteria are met per below protocol. Upon Completions of procedure up to 15 minutes continue every 5 minute vital signs and the P.A.R. score; then discharge to a Phase I or Fast Track to Phase II per the following guidelines: * Discharge Patient to appropriate Phase II area if PAR is 8 or greater or return to pre- procedure baseline. The post - procedure orders will be as directed. * If PAR score is less than 8 or not return to pre-procedure baseline then patient will follow Phase I monitoring till PAR is reached for Phase II. The Phase I may be done in procedure room or may call to secure a Phase I area. * If naloxone or flumazenil are used for reversal, hold in Phase I for continued monitoring from when last reversal dose was given for a minimum of 60 minutes or longer pending the nurse and/or physician discretion of patient condition before discharge to Phase II. Please call the Sedation Physician to re-evaluate and complete post-note for discharge to Phase II area. Do NOT discharge from procedure sedation or Phase 1 until post- sedation evaluation note is complete by procedure /sedation MD Sedation Discharge Instructions to be given to the patient at discharge to home.
--- NOTE | 2024-03-27 15:09 | Cardiac Catheterization ---
[facility] Data: Head Counselor Cardiac Status Clinical evaluation leading to the procedure CAD Presenation: Non STEMI Diagnostic Physicians Name: Saúl Lowery MD Closure Device Recommendations: PCI without planned CABG Cardiac Cath Procedure Full Procedure Date March 27, 2024 Pre-Procedure Diagnosis Pre-Procedure Diagnosis: Non STEMI AUC Score AUC Score: 7 Post-Procedure Diagnosis Post-Procedure Diagnosis: Severe CAD Procedure(s) Performed Procedure(s) Performed: Coronary Angiography and Left Heart Cath Talent Rep Salú Lowery MD Farmworker [employer](s) none Estimated Blood Loss Estimated Blood Loss: 5cc Medication(s) Medication(s): Fentanyl, Heparin, Lidocaine 1%, Nicardipine, Nitroglycerin and Versed Summary of Findings Procedure performed: Left heart catheterization, selective coronary angiography Staff used car lot attendant: Saúl Lowery MD Indication: The patient is an 78-year-old woman who presented to the hospital symptoms of chest discomfort and elevated cardiac biomarkers Procedure in detail: The patient was informed of the risks benefits and alternatives to the intended procedure, he understood such and wished to proceed. She was taken to the cardiac catheterization suite in a fasting state. Conscious sedation was administered per protocol and the patient was monitored electrocardiographically throughout today's procedure. The right wrist area was prepped and draped in usual sterile fashion. This area was anesthetized using subcutaneous administration of a lidocaine solution. The right radial artery was then accessed using Seldinger technique, and a arterial sheath was placed at this site over a guidewire. The sheath was used to facilitate passage of the cardiac catheter for coronary angiography and left heart catheterization. Coronary angiogram was then obtained in multiple orthogonal views prior to removal of the catheter. At the conclusion of the procedure the sheath was removed and hemostasis was achieved at the access site using manual pressure. The patient tolerated procedure well, there were no immediate complications. Equipment used: 5 [place] 4 Findings: Coronary angiography Left Main: Left main was normal in size and caliber and bifurcated normally to the left anterior descending and left circumflex arteries. Left anterior descending: This vessel has some luminal regularities in its proximal portion produced a small first diagonal branch with some luminal irregularities. In its midsection there was a long heavily diseased segment with 70% stenosis just prior to takeoff of a diminutive second diagonal branch. Left circumflex: Left circumflex was a nondominant vessel. It had some tapering at its ostium and there was a discrete 70% stenosis at the origin of the ongoing AV groove vessel which was small. It produced a diminutive first OM and a large branching second OM system without significant disease. Right coronary artery: The right coronary artery was a dominant vessel producing a small PDA and PL branch. It has luminal regularities in its proximal portion and a 20% stenosis focally. In its midportion there was a 99% stenosis. Impression: Right dominant coronary system Severe obstructive coronary disease involving the mid LAD and mid RCA Normal left ventricular filling pressures No evidence of aortic stenosis Hemodynamics Rest Ao:: 139/75 mmHg Final Ao: 152/68 mmHg LV: 140/3 mmHg Left ventricular end-diastolic pressure 9 mmHg Recommendations Recommendations: PCI without planned CABG Specimens Specimens: None Radiation Exposure (mGy) 301 Contrast (mls) 30 Procedural Complication(s) None Disposition PCU I attest to the content of the Intraoperative Record and any orders documented therein. Any exceptions are noted below. [facility] Card Cath Procedure Codes Cardiac Catheterization Procedure 1: Cardiovascular Cath Procedures: 45387 Coronaries and LHC (+/-LV) Moderate Sedation Procedure 1: Sedation/Anesthesia: 11286 Mod Sedation by the same physician;Init15 Min Child Age 5 & Up Procedure 2: Sedation/Anesthesia: 30000 Mod Sedation by the same physician; Ea [id number] Minutes PG Care Time/CCT Total # of Minutes Spent Total Time Spent with Patient: Total time spent is greater than 50% in coordination of care (as documented) at patient's floor/unit and/or counseling patient:
[2024-03-27] MEDS: OPTIRAY 350 ONE (15:16)
[2024-03-27] MEDS ORDERED: INSULIN ASPART PER UNIT CHARGE SC SCH (16:30)
[2024-03-27] MEDS: LACTATED RINGER'S 1,000 ML IV SCH (17:19)
[2024-03-27] MEDS: INSULIN ASPART PER UNIT CHARGE SC SCH ×2 (17:19→20:20)
[2024-03-27] MEDS: CLOPIDOGREL BISULFATE 300 MG TAB PO ONE (18:24)
[2024-03-27] MEDS: LANTUS PER UNIT CHARGE SQ SCH (20:20)
[2024-03-27 22:16] LABS: ANTI-Xa, UFH(UnfractionatedHep 0.23 IU/ml (0.3-0.7)
[2024-03-28] MEDS: NITROGLYCERIN SL 0.4 MG/TAB TAB SL PRN (01:11)
[2024-03-28] MEDS ORDERED: MoRPHine SULFATE 2 MG/ML CARP IV PRN (01:21)
--- NOTE | 2024-03-28 04:00 | Communication Note ---
Date of Service: March 28, 2024 Alerted by nursing of pt experiencing recurrence of chest pain. EKG showing acute ischemic changes in inferior leads different from prior EKG (per my read). Pt was given nitro SL x1 with decrease in chest pain. Repeat EKG showing redemonstration of ischemic changes (per my read). Pt's chest pain recurred and another dose of nitro SL was given. Pt's BP and HR did drop modestly with nitro doses (BP 110s/60s, HR 50s). Pt's trop continues to rise and has not peaked. Discussed case with Dr. Mast as pt is set to have interventional cath in the AM. Recommended pt to remain on heparin drip until cath. Pt had already received aspirin and plavix load. Heparin drip continues. Encouraged nursing to use morphine PRN for recurrence of chest pain rather than nitro d/t concern for hypotension/bradycardia especially in the setting of inferior AL. Plan to proceed with interventional cath in AM. Resident Activity Tracking Resident Involvement: Resident Care Provided Care Provided: Adult Hospital Medicine
[2024-03-28] MEDS: INSULIN ASPART PER UNIT CHARGE SC SCH (05:35)
[2024-03-28 05:45] LABS: Basophils # (auto) 0.04 K/uL (0.00-0.20); Basophils % (auto) 0.4 %; Eosinophils # (auto) 0.07 K/uL (0.00-0.50); Eosinophils % (auto) 0.8 %; Hematocrit (blood only) 31.1 % (37.0-47.0); Hemoglobin 10.8 g/dl (12.0-16.0); Immature Granulocytes # (auto) 0.04 K/uL (0.01-0.20); Immature Granulocytes % (auto) 0.4 %; Lymphocytes # (auto) 2.36 K/uL (1.20-3.40); Lymphocytes % (auto) 25.9 %; Mean Corpuscular Hemoglobin 29.3 pg (25.0-34.0); Mean Corpuscular Hgb Conc 34.7 g/dL (32.0-36.0); Mean Corpuscular Volume 84.5 fL (80.0-100.0); Monocytes # (auto) 0.58 K/uL (0.11-0.59); Monocytes % (auto) 6.4 %; Neutrophils # (auto) 6.03 K/uL (1.40-6.50); Neutrophils % (auto) 66.1 %; Platelet Count 238 K/uL (130-400); RDW Coefficient of Variation 13.7 % (11.5-14.5); RDW Standard Deviation 42.9 fL (36.4-46.3); Red Blood Count 3.68 M/uL (4.20-5.40); White Blood Count 9.12 K/ul (4.8-10.8)
[2024-03-28 06:02] LABS: BUN Creatinine Ratio 13.6 (10-20); Calcium 8.8 mg/dl (8.6-10.3); Creatinine Clr Calc Pharmacy 50.8 ml/min; Potassium 3.8 mmol/L (3.5-5.1)
[2024-03-28 06:27] LABS: ANTI-Xa, UFH(UnfractionatedHep 0.39 IU/ml (0.3-0.7)
[2024-03-28] MEDS: CLOPIDOGREL BISULFATE 75 MG TAB PO SCH (08:25)
--- NOTE | 2024-03-28 08:43 | Hospitalist Progress Note ---
Date of Service March 28, 2024 Assessment & Plan (1) NSTEMI (non-ST elevated myocardial infarction): Plan: Intermittent chest pain with exertion for many weeks, possibly slightly worse in the last few weeks with now 3 episodes of chest pain at rest in the last 2 days --chest pain overnight improved with SL NTG Troponin 354-->3672 - uptrending Echo - normal EF, no significant valvular disease, mild basal hypokinesis --diagnostic coronary angiogram 03/27 - severe CAD. mid LAD and mid RCA stenosis --continue heparin, plavix, aspirin --metoprolol, statin --discussed with scenic designer - transferring to PSYCHIATRIC for CAD and NSTEMI - anticipate high risk PCI needing cardiac surgery backup (2) DM2 (diabetes mellitus, type 2): Plan: Home antiglycemic's held while n.p.o. Converted to basal bolus insulin while inpatient Goal BSG [id number] BSG 233 on admission, sliding scale ordered. Lantus dose reduced while n.p.o. (3) HLD (hyperlipidemia): Plan: Fasting lipid panel ordered, patient is on pravastatin 40 mg daily. This will be converted to atorvastatin 40 mg. Patient does have some muscle aches, if she is intolerant of the atorvastatin then can consider rosuvastatin as an alternative (4) Arrhythmia: Plan: Patient does not know what arrhythmia she had but notes that she is not on any blood thinners and never has been other than aspirin. Does not think she has had A-fib or a flutter. She reports she was put on metoprolol a very long time ago and does not recall further details. Records pending. Sinus rhythm on admission Plan Transferred to PSYCHIATRIC CODE STATUS: Full code Admission and Anticipated Discharge Date Admission Date: March 27, 2024 Subjective had chest pain overnight resolved with nitro SL No pain currently, no dyspnea Physical Exam 2 Physical Exam: PHYSICAL EXAMINATION Last 24h vital signs reviewed, see documentation in flowsheet General: comfortable appearing, no distress HEENT: Normocephalic, atraumatic, pupils round and equal, sclerae anicteric, no conjunctival injection, moist mucus membranes Lungs: Normal respiratory effort. Clear to auscultation bilaterally. No RRW Heart: Regular rate and rhythm, no murmurs. No JVD Abdomen: Soft, nontender, nondistended. Bowel sounds present. Extremities: Warm, dry, well-perfused. No extremity edema. alert radial access site intact, no erythema swelling, radial pulse is normal hand is well-perfused Neuro: Alert and oriented x 4, face symmetric, moves 4 extremities well Psych: Normal affect and behavior Results & Data Results & Data Vital Signs (Past 12 Hours) Vital Signs Temp Pulse Pulse Resp BP Pulse Ox O2 Del Method 03/28/24 07:55 36.6 C 67 18 145/71 H 98 Room Air 03/28/24 02:21 36.7 C 60 18 124/67 94 Room Air 03/28/24 01:26 115/63 03/28/24 01:20 118/64 03/28/24 01:16 66 142/53 H 100 Room Air 03/28/24 01:00 67 22 192/74 H 100 Room Air 03/28/24 00:09 62 03/27/24 22:27 36.5 C 68 18 118/61 98 Room Air Laboratory Results 03/28/24 05:22 03/28/24 05:22 troponin 4000s PG Care Time/CCT Total # of Minutes Spent Total Time Spent with Patient: Total time spent is greater than 50% in coordination of care (as documented) at patient's floor/unit and/or counseling patient: Coding Level of Care Code 37003 SUB INP/OBS CARE 2/35MIN Diagnoses NSTEMI (non-ST elevated myocardial infarction) I21.4 DM2 (diabetes mellitus, type 2) E11.9 HLD (hyperlipidemia) E78.5 Arrhythmia I49.9
--- NOTE | 2024-03-28 10:47 | Discharge Summary ---
Date of Service March 28, 2024 Admission HPI Per Admitting Provider Yadira is an 78-year-old female who presented to the ER with chest pain across her bilateral upper chest with radiation nation into both arms and the mid jaw which was intermittent, but recurred last night after dinner. Patient had a stress test at [facility] which was normal 4 days ago. Per Chart Review: CTAchest is with no evidence of thoracic aortic dissection. No PE is noted. Mild subpleural airspace opacities of the right lower lower lobe greater than the left are seen which may reflect mild infectious process. Subtle interlobar thickening? Developing interstitial edema. Heterogenous appearance of the spine with lucent foci which could represent osteopenia but from which multiple myeloma/metastatic disease is not excluded. There is no leukocytosis. D-dimer is elevated at 2170, no PE seen on CTA as noted Troponin is elevated at 354, and uptrending at 479. Trended every 6 hours x 3 and echo ordered Serial EKGs: 8:08 AM: Normal sinus rhythm without territorial ST/T wave changes Dual EKG similar without acute ST segment changes or acute territorial T wave inversions. Total protein is not elevated. Medications include glimepiride, Januvia, losartan, metformin, Protonix, pioglitazone, pravastatin, Trulicity. Follows with Martine Robbins PA-C at [facility]. Records requested. Per patient: Yadira is seen at the bedside. She reports that she has a history of hypertension, reasonably controlled diabetes, past heart attack in 2019 but was thought to be due to a medication rather than ischemic disease and she has no stents or history of bypass and with no history of heart failure who was in town visiting her 's brother when she has had recurrent episodes of chest pain. She reports for a very long time she has had exertional chest pressure when walking up a ramp but this was brief and seem to improve with rest. She does endorse that maybe this is a little bit worse more recently but notes it has been there for a while She reports that Tuesday she had a routine stress test which was actually normal. This was not performed for any symptoms, was told she should have 1 around every 4 years due to her history. Records from [facility] are pending for this. She reports on Tuesday she was in the car when she had a sudden chest pressure and discomfort with a bandlike quality in which radiated into her jaw bilaterally. This lasted around 20 minutes and then resolved. She did see [facility] urgent care for this did not have EKG changes at that time and was felt to be stable for outpatient follow-up. She had a recurrent episode last night which seemed to wax and wane overnight lasting no longer than 20 minutes with each wave of discomfort and which was not associated with dyspnea or sweating. This was the same pain she experienced while in the car. Had recurrent pain this morning and she presented to the ER for evaluation and was found to have an elevated troponin. She did not take any medications this morning except her metoprolol. She reports she takes this for blood pressure. She did not take any aspirin, reports she did not receive any aspirin prehospital, 4 in the ER. Full dose aspirin ordered Records requested from her PCP including last family practice note, cardiology note, and cath record if available She does not Dors history of diabetes, hypertension. She denies history of tobacco abuse, rare social alcohol abuse. Full code She had a mucosal rash to sodium pentathol many years ago, denies other medication allergies Principal Diagnosis NSTEMI Discharge Exam She is alert and oriented x3. Mood affect appear normal. She answered all questions appropriately. HEENT: Sclerae are anicteric. Pupils are equal and reactive to light and accommodation. Extraocular movements were intact. Neuro: Cranial nerves intact Lungs: Lungs are clear to auscultation bilaterally. There are no rales wheezes or rhonchi. She has normal respiratory effort without use of accessory muscles. There is normal pulmonary excursion. Cardiac: The rhythm was regular. S1 and S2 were normal. There are no murmurs on examination. The PMI was not markedly displaced on palpation. Extremities: Patient has bilateral radial pulses that are equal in intensity. There is no evidence cyanosis or clubbing. There was no evidence of significant peripheral edema bilaterally. Evaluation of the right radial access site reveals a palpable pulse with good perfusion of the right hand. Skin: There are no rashes noted on examination today. ENMT Mallampati Class: III Respiratory normal respiratory effort Cardiovascular Rate/Rhythm: regular rate and regular rhythm Discharge Data Allergies Allergy/AdvReac Type Severity Reaction Status Date / Time thiopental [From Pentothal] Allergy Severe Verified 03/27/24 14:32 Consultations 03/27/24 11:12 ED Decision to Admit Stat 03/27/24 11:50 Consult Cardiology Routine Procedures Performed Operation Date: 03/28/24 12:00 <No data on this case meets the specified criteria> Ordered Studies 03/27/24 09:30 CT angio chest dissec wo/w con Stat 03/27/24 13:45 CL Cath Imgs for PACS use only Routine 03/28/24 09:00 CL Cath Imgs for PACS use only Stat Hospital Course (1) NSTEMI (non-ST elevated myocardial infarction): Plan 1. NSTEMI: On the day of admission she underwent chest CTA to exclude aortic dissection and pulmonary embolus. Neither was found. She had elevation in her cardiac biomarkers and also underwent diagnostic angiography. This revealed significant coronary artery disease involving the mid LAD and mid to distal right coronary. Due to significant contrast administration a plan was made for percutaneous intervention the following day. Over the course of the evening the patient had recurrent chest discomfort that responded to nitroglycerin. An EKG obtained at that time did reveal some transient ST segment elevations in the inferior leads. Due to concerns about her coronary anatomy and potential difficulty with intervention she was advised to consider transfer to a tertiary care center for evaluation. At the time of discharge she was pain-free. She had no breathing difficulty. She no discomfort at the radial access site. She received lactated Ringer's infusion over the course of the evening. Patient had been maintained on a heparin infusion throughout her hospitalization. She received aspirin. She was loaded with Plavix. She was continued on metoprolol. Metformin was held. Total Time Total Time Spent Total Time Spent (In Minutes): 20 Discharge Plan Discharge Items Patient Disposition: Transfer Acute Care Hospital Reason For Visit: NSTEMI Discharge Diagnosis: NSTEMI Activity: Per Instructions section Activity Comment: No vigorous use of the right wrist or hand for 7 days. 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 Call non-emergency contact if: you have any medication questions and your symptoms worsen Follow-up/Referrals: PCP,NO [Primary Care Provider] - Diet: Carb Consistent or DM2 and Heart Healthy Addtl Attending Provider Instructions: None Pending Studies at Discharge: No Stand-Alone Forms: [employer] [facility] Skilled Items Patient informed of condition?: Yes DNR: No Discharge Level of Care: Skilled Communicable Disease: No Discharge Prognosis: Stable Lines: Peripheral IV Urinary Catheter: No Medications and DC Order Prescriptions: Continued losartan 50 mg tablet 50 mg PO DAILY pioglitazone 15 mg tablet 15 mg PO DAILY pravastatin 40 mg tablet 40 mg PO DAILY metoprolol succinate 50 mg tablet extended release 24 hr 50 mg PO DAILY metformin 850 mg tablet 850 mg PO BID glimepiride 1 mg tablet 1 mg PO BID potassium chloride 20 mEq tablet,ER particles/crystals 20 meq PO DIRECTED pantoprazole 40 mg tablet,delayed release (DR/EC) 40 mg PO DAILY estradiol 0.01 % (0.1 mg/gram) cream 1 applic VAGINAL DIRECTED Januvia 100 mg tablet 100 mg PO DAILY Rx Instructions: last filled 09/11 90 day supply Trulicity 0.75 mg/0.5 mL pen injector 0.75 mg SUBCUT WK Discharge Orders: Discharge Order (Routine); Ordered 03/28/24 Ordered By: Saúl Lazo/Other Patient Handouts: Managing Type 2 Diabetes Admission Data Admit Date/Time: 03/27/24 11:42 Attending Provider: Nandini Carreon Admit Provider: Rubio Powell Primary Care Provider: PCP,NO Other Providers: Rubio Powell; Saúl Lowery Coding Level of Care Code INP/OBS EV SAME DAY LV 1,45MIN Diagnoses NSTEMI (non-ST elevated myocardial infarction) I21.4
[2024-03-28 11:30] VITALS: PULSE 88
--- NOTE | 2024-03-28 11:51 | Electrocardiogram Report ---
Test Reason : Blood Pressure : */* mmHG Vent. Rate : 64 BPM Atrial Rate : 64 BPM P-R Int : 182 ms QRS Dur : 84 ms QT Int : 442 ms P-R-T Axes : 41 20 -2 degrees QTcB Int : 455 ms Normal sinus rhythm Inferior injury pattern ACUTE [place] / STEMI Consider right ventricular involvement in acute inferior infarct Abnormal ECG Confirmed by Saúl Lowery ([id number]) on 03/28/2024 11:51:16 AM Referred By: REFERRED SELF Confirmed By: Saúl Lowery
--- NOTE | 2024-03-28 11:52 | Electrocardiogram Report ---
Test Reason : Blood Pressure : */* mmHG Vent. Rate : 59 BPM Atrial Rate : 59 BPM P-R Int : 184 ms QRS Dur : 82 ms QT Int : 464 ms P-R-T Axes : 43 27 39 degrees QTcB Int : 459 ms Sinus bradycardia Inferior injury pattern ACUTE [place] / STEMI Consider right ventricular involvement in acute inferior infarct Abnormal ECG When compared with ECG of 28-Mar-2024 00:54, (unconfirmed) No significant change was found Confirmed by Saúl Lowery ([id number] on 03/28/2024 11:51:34 AM Referred By: REFERRED SELF Confirmed By: Saúl Lowery
[2024-03-28 12:29] VITALS: BP 153/79; RESP 18; TEMP 98.1; O2SAT 99
== END 2024-03-28 13:23 | disposition short-term general hospital (02) | DRG 282 ==
LOC: ED 07:51 → SUATTDRO 11:42 → 2S 11:42